=== PATIENT | male | born 1955 ===

== ENCOUNTER → 2018-04-26 19:04 | Outpatient (REF) | payer OTHER, SELFPAY ==
[2018-04-26 21:23] LABS: Prostate Specific Antigen 7.45 ng/mL (0.10-4.00)
== END ==
LOC: LAB 19:04
PROVIDERS: Family Provider Family Medicine Geriatric Medicine; PCP Family Medicine Geriatric Medicine; Visit Provider Family Medicine Geriatric Medicine
DX: Z00.00 Encounter for general adult medical examination without abnormal findings (principal); Z12.5 Encounter for screening for malignant neoplasm of prostate
CPT/HCPCS: 36415; 84153; 87077; 87086; 87186